=== PATIENT | female | born 1990 | race Caucasian/White ===

== ENCOUNTER 2021-08-12 12:01 | Emergency (ER) | payer OTHER ==
[2021-08-12] MEDS ORDERED: ATARAX25 MG PO (13:33)
[2021-08-13] MEDS ORDERED: ATARAX25 MG PO (10:38)
== END 2021-08-12 13:40 | disposition home or self-care (01) ==
LOC: FER 12:01
DX: F41.0 Panic disorder [episodic paroxysmal anxiety] (principal)
CPT/HCPCS: 99283